=== PATIENT | male | born 1990 | race Caucasian/White ===

== ENCOUNTER 2018-09-18 21:55 | Emergency (ER) | payer BC ==
[~2018-09-18] VITALS: Ht 162.6 cm; Wt 65.8 kg
[2018-09-18 22:20] VITALS: BP 105/54
--- NOTE | 2018-09-18 22:22 | NUR ---
Pt triaged and ambulated to er lobby. Urine cup given.
[2018-09-18 23:10] LABS: BASOPHILS % (AUTO) 0.1 % (0.0-2.0); EOSINOPHILS # (AUTO) 0.1 K/uL (0-0.4); HEMATOCRIT 42.1 % (36-52); HEMOGLOBIN 14.5 g/dL (12.0-18.0); LYMPHOCYTES # (AUTO) 0.7 K/uL (2.0-11.5); LYMPHOCYTES % (AUTO) 6.9 % (20.5-51.1); MEAN CORPUSCULAR HEMOGLOBIN 29 pg (27-31); MEAN CORPUSCULAR HGB CONC 34 g/dL (33-37); MEAN CORPUSCULAR VOLUME 85.3 fL (80-94); MONOCYTES # (AUTO) 0.4 K/uL (0.8-1.0); MONOCYTES % (AUTO) 4.2 % (1.7-9.3); NEUTROPHILS # (AUTO) 9.4 K/uL (1.8-7.7); NEUTROPHILS % (AUTO) 87.8 % (42.2-75.2); PLATELET COUNT (AUTO) 189 K/uL (140-450); RED BLOOD CELL COUNT(AUTO) 4.94 MIL/uL (4.20-6.10); RED CELL DISTRIBUTION WIDTH 13.7 % (11.6-13.7); WHITE BLOOD COUNT (AUTO) 10.7 K/uL (4.8-10.8)
--- NOTE | 2018-09-18 23:15 | NUR ---
PT AMBULATED TO BED 10
[2018-09-18 23:20] LABS: ALBUMIN 4.4 g/dL (3.4-5.0); ANION GAP 13.6 (8-16); CARBON DIOXIDE 26.5 mmol/L (21-32); CREATININE 1.1 mg/dL (0.7-1.3); POTASSIUM 4.1 mmol/L (3.5-5.1); TOTAL BILIRUBIN 0.7 mg/dL (0.0-1.0)
--- NOTE | 2018-09-18 23:30 | NUR ---
PT PRESENTS TO THE ED TODAY CO SHARP 5/10 LOWER RIGHT ABD PAIN THAT COMES AND GOES X 1 WEEK. PT REPORTS N/V WITH 2 EMESIS TODAY. PT ALSO STATES THAT THE PAIN RADIATES DOWN INTO RIGHT TESTICLE. -- LOWER RIGHT ABD IS FIRM WITH TENDERNESS. -- PMH: HEPATITS A
--- NOTE | 2018-09-18 23:45 | NUR ---
PT TAKEN TO CT.
[2018-09-19] MEDS ORDERED: KETOROLAC 60 MG/2 ML VIAL IM ONE (00:35)
--- NOTE | 2018-09-19 00:35 | NUR ---
PT C/O HEADACHE AND ABD PAIN 02/07. MEDICATION GIVEN. PT FARRUKH. WELL.
[2018-09-19 01:36] VITALS: BP 111/73
--- NOTE | 2018-09-19 01:36 | NUR ---
Patient discharged with v/s stable. Written and verbal after care instructions given and explained. Patient alert, oriented and verbalized understanding of instructions. Ambulatory with steady gait. All questions addressed prior to discharge. ID band removed. Patient advised to follow up with PMD. Rx of Imodium, Zofran, Cipro, Motrin, and Craig given. Pt co 5/10 pain but denies medication at this time. Patient educated on indication of medication including possible reaction and side effects. Opportunity to ask questions provided and answered.
== END 2018-09-19 01:36 | disposition home or self-care (01) ==
LOC: MED 21:55
DX: R10.31 Right lower quadrant pain (principal); R11.2 Nausea with vomiting, unspecified; R19.7 Diarrhea, unspecified; F17.210 Nicotine dependence, cigarettes, uncomplicated; Z86.19 Personal history of other infectious and parasitic diseases; Z88.1 Allergy status to other antibiotic agents
CPT/HCPCS: 36415; 74176; 80053; 83690; 85025; 96372; 99284; J1885